=== PATIENT | male | born 1945 | race Caucasian/White ===

== ENCOUNTER → 2016-11-25 | Day surgery (SDC) | payer MEDICARE ==
[~2016-11-25] MED LIST: ACETAMINOPHEN 1000 MG/100 ML 100 ML IV ONE; ASPI81TA45 PO; BUPIVACAINE/EPINEPHRINE 0.25% 50 ML VIAL ONE; CHOLESTEROL MED; HYDR-3533 PO; KETO10 PO; LACTATED RINGER'S 1000 ML INJ 1,000 ML ONE; LIDOCAINE HCL 1% 20 ML VIAL INFIL ONE; LORT5TAB; MIDAZOLAM HCL 2 MG/2 ML VIAL ONE; ONDANSETRON HCL 4 MG/2 ML VIAL IV PUSH ONE; PROPOFOL 200 MG/20 ML AMP IV ONE; TAMS0.4C67 PO; ZOFR4TAB3 SL; ceFAZolin INJ 1,000 MG VIAL ONE
--- NOTE | 2016-11-25 09:05 | TN ---
cc: THIERRY BHARDWAJ HUMAYUN A. M.D. BIANCHI, JOSEPH D. M.D. DATE OF SURGERY 11/25/2016 PREOPERATIVE DIAGNOSIS Right inguinal hernia. POSTOPERATIVE DIAGNOSIS Right inguinal hernia. PROCEDURE Repair right inguinal hernia with mesh. ANESTHESIA General SURGEON Dr. Rapp INDICATIONS This is a pleasant 71-year-old gentleman with a symptomatic right inguinal hernia. Plans were made for above. PROCEDURE The patient was taken to the operating room, placed in the supine position. After endotracheal anesthesia, the abdomen was prepped with Betadine. Time-out was done antibiotics given. We make an oblique incision overlying the internal, external ring after anesthetizing with a Marcaine solution. We dissect down through [place] fascia identifying the external oblique aponeurosis which was incised. Cord structures were then surrounded with a Shahida drain. A moderate-sized hernia defect is visualized and reduced. A cord lipoma is removed. The ilioinguinal nerve is seen and preserved. We then placed a piece of polypropylene mesh cut to size securing it to the pubic tubercle, Tez's ligament and the iliopubic tracts out laterally and the conjoined tendon medially. The tails were then fashioned and secured to themselves in the internal oblique aponeurosis. After that was done, we then closed the external oblique aponeurosis with 2-0 Vicryl and the skin is closed with a 4-0 Vicryl. Steri-Strips applied. Sterile bandage applied. The patient tolerated the procedure well with no immediate postop complications. MD ADILENE Rosado/JUDY /8:51 AM /8:54 AM
== END | disposition home or self-care (01) ==
LOC: ESDC 06:58
PROVIDERS: ATTEND Surgery
DX: K40.90 Unilateral inguinal hernia, without obstruction or gangrene, not specified as recurrent (principal)
CPT/HCPCS: 00830; 49505; C1781; J0131; J0690; J2250; J2405; J3010; J7120